=== PATIENT | male | born 1970 | race Caucasian/White ===

== ENCOUNTER 2018-07-03 13:54 | Outpatient (CLI) | payer OTHER ==
[2018-07-03 14:59] LABS: eGFR (African) > 60; eGFR (Non-African) > 60
== END 2018-07-03 13:56 ==
LOC: LAB 13:54
PROVIDERS: ATTEND Family Medicine
DX: Z00.00 Encounter for general adult medical examination without abnormal findings (principal)
CPT/HCPCS: 36415; 80053; 80061

== ENCOUNTER 2019-03-19 13:48 | Outpatient (CLI) | payer OTHER ==
--- NOTE | 2019-03-19 14:07 | Diagnostic Imaging Report ---
PHONG GOYAL [facility] [address] [facility].[address] [address] Report Submission Date: Mar 19, 2019 2:04:38 PM CDT Patient Study Name: SERGE SUTHERLAND Date: Mar 19, 2019 1:50:16 PM CDT Modality Type: DX Gender: M Description: FOOT 3 VIEWS OR MORE : 72 Institution: [facility] Physician: PHONG GOYAL EXAMINATION: FOOT 3 VIEWS OR MORE HISTORY: LEFT LATERAL FOOT PAIN X 6 MONTHS. NKI (Hx) COMPARISON: None FINDINGS: The osseous structures are intact and well aligned without acute fracture or dislocation. The joint spaces are preserved. Bone density is normal. No soft tissue swelling is seen. Calcaneal spurs are noted. IMPRESSION: Calcaneal spurs without acute fracture or dislocation identified. Electronically signed on Mar 19, 2019 2:04:38 PM CDT by: Jose Eduardo AMIN
== END 2019-03-19 13:50 ==
LOC: RAD 13:48
PROVIDERS: ATTEND Family Medicine
DX: M77.32 Calcaneal spur, left foot (principal)
CPT/HCPCS: 73630

== ENCOUNTER 2019-05-15 08:55 | Outpatient (CLI) | payer OTHER ==
--- NOTE | 2019-05-15 12:03 | Diagnostic Imaging Report ---
Tramaine Kim [facility] [address] [facility] [address] [address] Report Submission Date: May 15, 2019 10:42:39 AM CDT Patient Study Name: SERGE SUTHERLAND Date: May 15, 2019 9:44:40 AM CDT Modality Type: DX Gender: M Description: KNEE 3 VIEWS : 72 Institution: [facility] Physician: Tramaine Kim Examination: Plain film left knee History: Lt knee pain, Hx previous injury years ago, possible cartilage damage, no surgeries Findings: 3 views of the left knee demonstrates normal cortical margins. No fracture. No dislocation. No joint effusion. No soft tissue irregularity. Impression: No acute osseous abnormality Electronically signed on May 15, 2019 10:42:39 AM CDT by: Felix AMIN
--- NOTE | 2019-05-18 08:24 | CONSULTATION REPORT ---
SERGE SUTHERLAND Chart No.: [id number] : 1970 DATE OF CONSULTATION: 05/15/2019 [facility] CHIEF COMPLAINT: Painful left knee. HISTORY OF PRESENT ILLNESS: This 48-year-old white male, BMI 33.9, is seen for recommendation regarding treatment of left knee pain. He indicates seeing iVcky Simmons M.D. for routine primary care needs. I note that this gentleman has a report of having jumped out of a truck and twisted the left knee in the mid , as per Dr. Simmons's notes. The patient confirms same, indicates that he was thought to possibly have torn a cartilage, but did not have time for surgery. He did not undergo an MRI at that time, however. He has noted more discomfort over the last few years and wants to see if he can get his knee taken care of. It does not swell much, but does pop a lot. He says that he has intermittent pain. He reports there is no metal allergy. The pain is located diffusely or all over. He describes the quality of the pain as aching and sharp, [id number] and worsening. He rates his pain at rest as 5/10, pain with activities 9/10. He does report occasional mild knee swelling. Pain is worse with activities, walking, running, kneeling, standing for long periods of time. He says he does not run any more because it aches if he runs. He does report the pain is better with rest. Pain has progressed with activities of daily living. He does not have night pain nor does the knee pain awaken him at night. He does not report a fear of falling. He does report that the knee sometimes gives out and he ambulates with mild difficulty. He uses a knee brace at times. He has not been taking narcotic pain medication for the knee. He does report taking ibuprofen 600 mg once a day, helps some. He has not had injections, either steroidal or viscosupplementation. He has not undergone a physical therapy program. He does take Tylenol for the pain at times. He indicates he feels he has gained about 20 pounds because of inactivity due to the knee limitation. He has tried doing exercises for years. He does note some intermittent lower back pain. PAST MEDICAL HISTORY: The patient reports past medical history is negative for diabetes, heart troubles, pulmonary embolism/deep venous thrombosis, blood clotting disorder, strokes, hepatitis, kidney problems, dental problems, rheumatoid disease, lymphedema, any recent infections or any MRSA, and he reports no history of knee surgery. He did see Dr. Simmons most recently on 03/19/2019, is reported to have depression, the patient takes either bupropion or Lexapro. He does report having seen the foot doctor for some left plantar foot pain, a month or so ago. The patient does indicate wearing a CPAP machine for sleep apnea, set at 7%. MEDICATIONS: Abilify daily for depression, and either Lexapro or bupropion, the patient is not sure which. SOCIAL HISTORY: He denies nicotine usage currently or in the past. He does use alcohol. Does report history of alcohol abuse. The patient's alcohol intake is described as two drinks per week for the past 30 years. The patient does not take fish oil. WORK HISTORY: He works in [employer]. FAMILY HISTORY: Negative for pulmonary embolism, blood clots, bone disease, rheumatoid disorder. Positive for heart attacks in maternal grandfather and paternal grandmother as well as hypercholesterolemia in mother. REVIEW OF SYSTEMS: Negative for fatigue/weakness, fever, weight loss. Negative for hives, rashes. Negative for loss of hearing, ringing in hearing, nosebleeds, bleeding gums, mouth sores, hoarseness, frequent sore throat. Negative for double or blurred vision, eye pain, flashing spots or light. He does wear corrective lenses. Negative for chest pain with activity or at rest, shortness of breath, leg swelling, palpitations. Negative for chronic cough, wheezing, pleural effusion by history, history of pneumonia or tuberculosis. Positive for sleep apnea using CPAP machine. Gastrointestinal is negative for nausea, vomiting, heartburn, regurgitation, gout, diarrhea, constipation, stomach pain. Genitourinary is negative for difficult urination, painful urination, blood in urine, frequent urination, urgency, kidney stones. Psychiatric is positive for depression with possible bipolar, negative for obsessive-compulsive disorder, anorexia, binge eating. Neurologic is negative for dementia, Alzheimer's, headaches, dizziness, fainting, tremors, convulsions or seizures, memory loss. Endocrine is negative for adrenal disease, heat-cold intolerance, flushing or fingernail changes. PHYSICAL EXAMINATION: Vital signs are recorded, revealing temperature 97.2, respirations 18, pulse 85, blood pressure 131/74 on room air. There is oxygen saturation of 98%. The patient is 6 feet in height with a weight of 254 pounds, BMI of 34. HEENT: Normocephalic. Neck: Supple. Lungs: Clear to percussion bilaterally. Cardiovascular: Regular rate and rhythm. Abdomen: Soft, nontender. Extremities: There is no cyanosis, clubbing or edema. The patient has tenderness, mild, over the medial joint line of the left knee. He fully extends that knee, does flex left knee to approximately 120 degrees, right knee to approximately 130 degrees. He has negative Martha's, negative anterior/posterior drawer, negative gross opening of varus/valgus stress at 0 or 30 degrees of flexion on the left. There is symmetric quadriceps strength and tone. There is palpable, but nontender superomedial synovial shelf/plica. The patient does have mild exacerbation and discomfort on varus stress while flexing and extending the knee. There is no gross effusion left knee. There is minimal crepitance on patellofemoral compression while flexing and extending the left knee. IMAGES: X-rays obtained of the left knee today including weightbearing AP lateral views and a tangential patellar view reveal good joint space preservation throughout all three compartments. There is some slight osteophyte formation on the distal medial femoral condylar margin. No acute bony abnormalities are evident. There is good tracking of the patellofemoral surfaces suggested, mild lateral position of patella within the femoral groove noted. IMPRESSION: 1. Mild osteoarthritis left knee noted on both physical exam as well as x-ray assessment. 2. Depression, currently treated. 3. Mild obesity with BMI 34. RECOMMENDATIONS: Options are discussed with the patient. He does not appear to require surgical treatment at this time. I did recommend a longer acting nonsteroidal medication, meloxicam 7.5 mg daily in lieu of taking the ibuprofen, as a trial if nothing else, as he may find a little more benefit from a longer acting nonsteroidal. Prescription is provided for 7.5 mg meloxicam, dispensed 30 with two refills. He is advised as to side effect and is to take the medication with his largest meal of the day. I also recommended a home program for physical therapy for rehab for the osteoarthritic left knee, stretching, strengthening and range of motion exercises as this is, in some individuals, helpful. The patient is counseled regarding the nature of his condition. Weight reduction is appropriate, and discussed rationale for that. We also discussed the possibility of corticosteroid injection, although he declines at this point. I did recommend that he recheck with me in about six weeks if symptoms are not improving. At that point, may wish to revisit possibility of corticosteroid injection left knee. He is not against that altogether, but, reasonably so, wants to try nonsurgical measures of other varieties first. I did recommend that weight reduction efforts focus on nutritional measures primarily as approximately 80% of weight reduction is generally associated with nutritional changes and only approximately 20% with activity changes in most studies. The patient is advised to recheck with me in about six weeks if symptoms persist or worsen at which time we can reassess. At this point, he does not have findings to suggest necessity of or benefit from an MRI scan. Thank you for the opportunity to evaluate this pleasant gentleman who indicates satisfaction with today's visit, indicates all of his questions have been answered to his voiced satisfaction. Sincerely, Tramaine Kim MD (Dictated/not signed) /[employer] [id number] cc: Vicky Simmons M.D. MTDLuci
== END 2019-05-15 09:50 ==
LOC: ORHTO 08:55
PROVIDERS: ATTEND Orthopaedic Surgery
DX: M17.12 Unilateral primary osteoarthritis, left knee (principal); E66.9 Obesity, unspecified
CPT/HCPCS: 73562

== ENCOUNTER 2019-09-10 19:13 | Emergency (ER) | payer OTHER ==
--- NOTE | 2019-09-10 19:25 | ED Physician Documentation ---
Abdominal Pain - HISTORIAN Historian: patient - HPI Stated Complaint: LLQ abdominal pain Chief Complaint: Abdominal Pain Additonal Information: Patient presents to ED with LLQ pain which started today. He first noticed the pain when he woke up from a nap this afternoon. The pain has been intermittent, dullache with periods of sharp stabbing. Patient rates his pain as 5/10 in the left lower quadrant, radiating to left flank. He denies nausea/vomiting, diarrhea, hematochezia, melena. He reports dark, red urine today. Onset: hours (12) Duration: waxing, waning Timing: still present Context: denies: out of country travel Severity: moderate Quality: aching, dull, sharp, stabbing Associated Symptoms: denies: fever, chills, nausea, vomiting, bloody stools Exacerbated by: movements Relieved by: supine - ROS CONST: no problems GI/: dark urine CVS/RESP: none EYES/ENT: none MS/SKIN/LYMPH: none - SOCIAL HX Smoking History: non-smoker Alcohol Use: none Drug Use: none - FAMILY HX Family History: none - PAST HX Past History: none Ischemic Bowel Risk Factors: none Other History: none Surgeries/Procedures: none Home Medications: Ambulatory Orders Medication Instructions Recorded HYDROcodone /APAP 5/325 [[place] 1 each PO Q4 PRN #15 tablet 09/10/19 5/325] Meloxicam [Mobic] 1 tab PO DAILY 09/10/19 Ondansetron HCl Rapdis [Zofran Odt] 4 mg PO Q8 PRN #20 tab 09/10/19 Tamsulosin HCl [Flomax] 0.4 mg PO [id number] #30 cap.er.24h 09/10/19 Allergies/Adverse Reactions: Allergies Allergy/AdvReac Type Severity Reaction Status Date / Time No Known Drug Allergies Allergy Verified 09/10/19 19:25 - VITAL SIGNS Vital Signs: Vital Signs Temp Pulse Resp BP Pulse Ox 87 15 156/104 97 09/10/19 19:23 09/10/19 19:23 09/10/19 19:23 09/10/19 19:23 - REVIEWED ASSESSMENTS Nursing Assessment Reviewed: Yes Vitals Reviewed: Yes ED Results Lab/Radiology - Lab Results Lab Results: UA- +3 blood, no infection - Radiology Radiology Impressions: Report Submission Date: Sep 10, 2019 8:09:35 PM CDT Patient Study Name: SERGE SUTHERLAND Date: Sep 10, 2019 7:52:46 PM CDT Modality Type: CT\SR Gender: M Description: CT ABD PELVIS W/O CO : 72 Institution: [facility] Physician: MADAY MAC CT abdomen and pelvis without contrast History: Left lower quadrant pain and hematuria. Technique: Transaxial computed tomographic images of the abdomen pelvis were obtained without contrast according to standard protocol. Findings: Calcified granuloma seen in the right lung base. The liver is normal. Stones are present contracted gallbladder. The pancreas spleen and adrenal glands are normal. There is a small 2 mm calculus present in the proximal left ureter near the left ureteropelvic junction resulting in mild left intrarenal hydronephrosis. There is 2 additional 3 mm calculi in the mid zone of the left kidney and punctate calculus in the inferior pole of the left kidney. No bowel wall thickening or dilation is present. The appendix is air-filled and normal. The unenhanced vascular structures are normal. There is no adenopathy present. The bladder is normal. The osseous structures are normal. Impression: 1. 2 mm calculus near the left ureteropelvic junction resulting in mild left hydronephrosis. 2. Additional left intrarenal calculi present. 3. Cholelithiasis. Electronically signed on Sep 10, 2019 8:09:35 PM CDT by: Karsten Washington - Orders Orders: ED Orders Category Date Time Status Place IV Lock 1T Care 09/10/19 19:[address] ABD & PELVIS W/O CON Stat Exams 09/10/19 Ordered CBC/PLATELET/DIFF Routine Lab 09/10/19 19:49 Received CMP Routine Lab 09/10/19 19:49 Received UA W/MICRO IF INDICATED Routine Lab 09/10/19 19:25 Ordered 0.9 % Sodium Chloride [Normal Saline] 1,000 ml Med 09/10/19 19:25 Discontinued IV Q1H Abdominal Pain Physical Exam - Physical Exam General Appearance: no acute distress, alert EENT: ENT inspection normal, BLANQUITA NECK: normal inspection, supple RESPIRATORY: no resp distress, breath sounds normal CVS: reg rate & rhythm, heart sounds normal ABDOMEN: soft, normal bowel sounds, non-tender BACK: normal inspection, no CVA tenderness SKIN: warm/dry EXTREMITIES: non-tender, no evidence of injury, no edema NEURO: oriented X3, CN's nml as tested, motor nml, mood/affect nml Vital Signs: Vital Signs Temp Pulse Resp BP Pulse Ox 87 15 156/104 97 09/10/19 19:23 09/10/19 19:23 09/10/19 19:23 09/10/19 19:23 Discharge Clincal Impression: Renal calculus, left Prescriptions: HYDROcodone /APAP 5/325 [[place] 5/325] 1 each PO Q4 PRN #15 tablet PRN Reason: pain Tamsulosin HCl [Flomax] 0.4 mg PO [id number] #30 cap.er.24h Referrals: Vicky Simmons MD [Primary Care Provider] - 2 Days Additional Instructions: 1. [place] every 4 hours as needed for pain 2. Zofran every 8 hours as needed for nausea 3. Drink plenty of fluids to maintain proper hydration. Avoid energy drinks, caffeine and alcohol 4. Take Flomax daily at bedtime. This medication will make passing stone easier and less painful 5. Follow up with Dr. Simmons within 1 week 6. Return to ER for new or worsening symptoms Condition: Stable Disposition: 01 HOME, SELF-CARE Decision to Admit: NO Date of Decison to Admit: 09/10/19 Decision Time: 20:33
[2019-09-10] MEDS: 0.9 % SODIUM CHLORIDE 1,000 ML IV ONE (19:46)
[2019-09-10] MEDS: TAMSULOSIN HCL 0.4 MG CAP.ER.24H PO ONE (20:48)
[2019-09-10] MEDS: KETOROLAC TROMETHAMINE 30 MG/1ML VIAL IV ONE (20:52)
[2019-09-10 20:57] VITALS: BP 179/93
[2019-09-11 06:15] LABS: APPEARANCE,URINE CLOUDY (CLEAR); COLOR,URINE RED (YELLOW)
[2019-09-11 06:16] LABS: OCCULT BLOOD,URINE 3+ (NEGATIVE); PH URINE 6.5 (5.0 - 8.0)
[2019-09-11 07:31] LABS: BASOPHILS % 0.8 % (0.0-1.5); NEUTROPHILS # 5.3 # k/uL (1.4-7.7)
--- NOTE | 2019-09-13 11:25 | Diagnostic Imaging Report ---
MADAY MAC [facility] [address] [facility] [address] [place], [place]. [address] Report Submission Date: Sep 10, 2019 8:09:35 PM CDT Patient Study Name: SERGE SUTHERLAND Date: Sep 10, 2019 7:52:46 PM CDT Modality Type: CT\SR Gender: M Description: CT ABD PELVIS W/O CO : 72 Institution: [facility] Physician: MADAY MAC CT abdomen and pelvis without contrast History: Left lower quadrant pain and hematuria. Technique: Transaxial computed tomographic images of the abdomen pelvis were obtained without contrast according to standard protocol. Findings: Calcified granuloma seen in the right lung base. The liver is normal. Stones are present contracted gallbladder. The pancreas spleen and adrenal glands are normal. There is a small 2 mm calculus present in the proximal left ureter near the left ureteropelvic junction resulting in mild left intrarenal hydronephrosis. There is 2 additional 3 mm calculi in the mid zone of the left kidney and punctate calculus in the inferior pole of the left kidney. No bowel wall thickening or dilation is present. The appendix is air-filled and normal. The unenhanced vascular structures are normal. There is no adenopathy present. The bladder is normal. The osseous structures are normal. Impression: 1. 2 mm calculus near the left ureteropelvic junction resulting in mild left hydronephrosis. 2. Additional left intrarenal calculi present. 3. Cholelithiasis. Electronically signed on Sep 10, 2019 8:09:35 PM CDT by: Karsten AMIN
== END 2019-09-10 20:55 | disposition home or self-care (01) ==
LOC: ED 19:13
DX: N20.0 Calculus of kidney (principal)
CPT/HCPCS: 74176; 80053; 81002; 85025; 96360; 99284; J7030; S1016